=== PATIENT | male | born 1965 | race Caucasian/White ===

== ENCOUNTER 2016-10-29 08:17 | Inpatient (IN) | payer BC, OTHER ==
[~2016-10-29] VITALS: Ht 180.3 cm; Wt 77.3 kg
[~2016-10-29 08:17] MED LIST: ALBUTEROL0.09 MG/A4 IH; CLEOCIN HCL PO; COL100 PO; FENOFIBRATE130 MG PO; FENOFIBRATE145 M1 PO; FERROUS SULFAT325 M2 PO; FOL1 PO; GLU5 PO; GOOD NEIGHBOR100 M2 PO; LEV500 PO; METFORMIN500 M1 PO; PER5 PO; PRA40 PO; PRI20 PO; PRILOSEC40 MG PO; PROVENTIL0.09 MG/A1 INH; VITAMIN C500 M2 PO; VITAMIN D1 TA1 PO; ZES5 PO; ZESTRIL5 MG PO
[2016-10-29 09:17] LABS: CALCIUM 9.4 mg/dL (8.5-10.1); CARBON DIOXIDE 24.1 mmol/L (21-32); CHLORIDE SERUM 100 mmol/L (98-107); GFR1 > 60 mL/min; GLUCOSE SERUM 136 mg/dL (74-106); POTASSIUM SERUM 4.1 mmol/L (3.5-5.1); SODIUM SERUM 137 mmol/L (136-145)
[2016-10-29 09:22] LABS: ALBUMIN 4.4 g/dL (3.4-5.0); ALKALINE PHOSPHATASE 51 U/L (46-116); ALT/SGPT 30 U/L (16-63); AST/SGOT 14 U/L (15-37); BILIRUBIN TOTAL 0.61 mg/dL (0.20-1.00); TOTAL PROTEIN, SERUM 8.2 g/dL (6.4-8.2)
[2016-10-29 09:24] LABS: BASOPHIL % 0.4 % (0-2); PLATELET COUNT 358 x10^3mcL (130-400); RED CELL DISTRIBUTION WIDTH 12.8 % (11.5-14.5)
[2016-10-29 09:29] LABS: CHOLESTEROL 241 mg/dL (<200); HDL CHOLESTEROL 101 mg/dL (40-60)
[2016-10-29 12:49] LABS: CHOLESTEROL/HDL RATIO 2.3
[2016-10-29 12:50] LABS: FREE T4 0.87 ng/dL (0.76-1.46); FREE THYROXINE INDEX 2.1 ug/dL (1.4-4.5)
[2016-10-29 12:59] LABS: microscopic required? NO
[2016-10-29 13:09] LABS: UA SPECIFIC GRAVITY <=1.005 (1.005-1.035); urine erythrocyte NEGATIVE (NEGATIVE)
[2016-10-29 13:10] LABS: T3 TOTAL 0.68 ng/mL
[2016-10-29 13:21] LABS: AMPHETAMINE QUAL UR NONE DETECTED (NEG <=1000)
[2016-10-29 13:41] VITALS: BP 138/86
[2016-10-29 15:09] VITALS: BP 138/86
[2016-10-29 21:27] VITALS: BP 119/65
[2016-10-30 05:48] VITALS: BP 133/76
[2016-10-30 06:05] LABS: BASOPHIL % 0.1 % (0-2); PLATELET COUNT 340 x10^3mcL (130-400); RED CELL DISTRIBUTION WIDTH 12.6 % (11.5-14.5)
[2016-10-30 06:21] LABS: CALCIUM 8.5 mg/dL (8.5-10.1); CARBON DIOXIDE 25.6 mmol/L (21-32); CHLORIDE SERUM 105 mmol/L (98-107); CREATININE SERUM 0.8 mg/dL (0.7-1.3); GFR1 > 60 mL/min; GLUCOSE SERUM 113 mg/dL (74-106); PHOSPHOROUS 3.3 mg/dL (2.5-4.9); SODIUM SERUM 139 mmol/L (136-145)
[2016-10-30 09:47] VITALS: BP 128/83
[2016-10-30 14:01] VITALS: BP 136/87
[2016-10-30 18:02] VITALS: BP 136/72
[2016-10-30 22:06] VITALS: BP 146/74
[2016-10-31 06:33] LABS: BASOPHIL % 0.6 % (0-2); PLATELET COUNT 340 x10^3mcL (130-400); RED CELL DISTRIBUTION WIDTH 11.9 % (11.5-14.5)
[2016-10-31 06:40] LABS: CALCIUM 8.7 mg/dL (8.5-10.1); CARBON DIOXIDE 29.9 mmol/L (21-32); CHLORIDE SERUM 105 mmol/L (98-107); CREATININE SERUM 0.8 mg/dL (0.7-1.3); GFR1 > 60 mL/min; GLUCOSE SERUM 127 mg/dL (74-106); MAGNESIUM 2.1 mg/dL (1.8-2.4); PHOSPHOROUS 5.4 mg/dL (2.5-4.9); POTASSIUM SERUM 4.2 mmol/L (3.5-5.1); SODIUM SERUM 141 mmol/L (136-145)
[2016-10-31 06:55] VITALS: BP 120/65
[2016-10-31 09:54] VITALS: BP 102/63
[2016-10-31 12:27] VITALS: BP 123/69
[2016-10-31 21:36] VITALS: BP 137/67
[2016-11-01 06:19] LABS: BASOPHIL % 0.1 % (0-2); PLATELET COUNT 333 x10^3mcL (130-400); RED CELL DISTRIBUTION WIDTH 12.8 % (11.5-14.5)
[2016-11-01 06:37] VITALS: BP 140/74
[2016-11-01 06:39] LABS: CALCIUM 8.4 mg/dL (8.5-10.1); CARBON DIOXIDE 28.3 mmol/L (21-32); CHLORIDE SERUM 104 mmol/L (98-107); CREATININE SERUM 0.8 mg/dL (0.7-1.3); GFR1 > 60 mL/min; GLUCOSE SERUM 122 mg/dL (74-106); MAGNESIUM 2.1 mg/dL (1.8-2.4); PHOSPHOROUS 5.3 mg/dL (2.5-4.9); POTASSIUM SERUM 4.1 mmol/L (3.5-5.1); SODIUM SERUM 139 mmol/L (136-145)
[2016-11-01 09:21] VITALS: BP 121/73
[2016-11-01] MEDS ORDERED: SYMBICORT1 AE2 INH (09:34)
[2016-11-01] MEDS ORDERED: SINGULAIR10 MG PO (09:34)
[2016-11-01] MEDS ORDERED: LISINOPRIL10 MG PO (09:38)
[2016-11-01 11:53] VITALS: BP 121/73
== END 2016-11-01 12:27 | disposition home or self-care (01) | DRG 202 ==
LOC: ED 08:17 → DU 12:02
PROVIDERS: Emergency Medicine; Family Medicine; ADMIT Family Medicine
DX: J45.901 Unspecified asthma with (acute) exacerbation (principal); N17.0 Acute kidney failure with tubular necrosis; E78.5 Hyperlipidemia, unspecified; I10 Essential (primary) hypertension; E11.9 Type 2 diabetes mellitus without complications; Z53.29 Procedure and treatment not carried out because of patient's decision for other reasons; Z88.0 Allergy status to penicillin; Z87.891 Personal history of nicotine dependence; Z79.899 Other long term (current) drug therapy; Z79.84 Long term (current) use of oral hypoglycemic drugs
CPT/HCPCS: 80307; 83880; 84439; 90658; G0480; J1956; J2920; J2930; J7030; J7040; J7613; J7620; J7626; Q0092; Q9967

== ENCOUNTER 2018-08-23 06:33 | Inpatient (IN) | payer OTHER ==
[~2018-08-23] VITALS: Ht 177.8 cm; Wt 81.2 kg
[~2018-08-23 06:33] MED LIST changes: +LISINOPRIL10 MG PO; +SINGULAIR10 MG PO; +SYMBICORT1 AE2 INH
[2018-08-23 06:38] VITALS: Ht 177.8 cm; Wt 81.2 kg
[2018-08-23 07:30] LABS: CALCIUM 8.6 mg/dL (8.5-10.1); CARBON DIOXIDE 30.5 mmol/L (21-32); CHLORIDE SERUM 104 mmol/L (98-107); CREATININE SERUM 0.9 mg/dL (0.7-1.3); GFR1 > 60 mL/min; GLUCOSE SERUM 131 mg/dL (74-106); POTASSIUM SERUM 5.4 mmol/L (3.5-5.1); SODIUM SERUM 140 mmol/L (136-145)
[2018-08-23 07:35] LABS: ALKALINE PHOSPHATASE 22 U/L (46-116); ALT/SGPT 18 U/L (16-63); AST/SGOT 13 U/L (15-37); BILIRUBIN TOTAL 0.29 mg/dL (0.20-1.00); LIPASE 113 IU/L (73-393); TOTAL PROTEIN, SERUM 7.2 g/dL (6.4-8.2)
[2018-08-23 07:49] LABS: BASOPHIL % 0.5 % (0-2); PLATELET COUNT 354 x10^3mcL (130-400); RED CELL DISTRIBUTION WIDTH 12.5 % (11.5-14.5)
[2018-08-23 08:32] LABS: AMPHETAMINE QUAL UR NONE DETECTED (See below)
[2018-08-23] MEDS ORDERED: TRAMADOL HCL50 MG PO (08:53)
[2018-08-23] MEDS ORDERED: NAPROSYN500 MG PO (08:54)
[2018-08-23 09:19] VITALS: BP 121/80
[2018-08-23 11:55] VITALS: BP 121/80
[2018-08-23 12:16] VITALS: BP 126/74
[2018-08-23 16:21] VITALS: BP 111/75; BP 161/64
[2018-08-23 20:35] VITALS: BP 110/69
[2018-08-24 05:49] VITALS: BP 93/67
[2018-08-24 08:00] VITALS: BP 117/74
[2018-08-24 12:30] VITALS: BP 143/85
[2018-08-24 12:31] VITALS: BP 104/71
[2018-08-24 14:49] VITALS: BP 104/71
== END 2018-08-24 15:30 | disposition home or self-care (01) | DRG 394 ==
LOC: ED 06:33 → DU 08:06
PROVIDERS: Emergency Medicine; ADMIT Internal Medicine
PROC: 0DJD8ZZ Inspection of Lower Intestinal Tract, Via Natural or Artificial Opening Endoscopic (ICD-10-PCS; principal; 2018-08-23)
DX: K60.1 Chronic anal fissure (principal); K62.5 Hemorrhage of anus and rectum; D50.0 Iron deficiency anemia secondary to blood loss (chronic); K57.30 Diverticulosis of large intestine without perforation or abscess without bleeding; E11.9 Type 2 diabetes mellitus without complications; J45.909 Unspecified asthma, uncomplicated; I10 Essential (primary) hypertension; F10.10 Alcohol abuse, uncomplicated; Z68.25 Body mass index [BMI] 25.0-25.9, adult; Z87.01 Personal history of pneumonia (recurrent); Z79.4 Long term (current) use of insulin; Z79.1 Long term (current) use of non-steroidal anti-inflammatories (NSAID)
CPT/HCPCS: 45378; 82962; C9113; G0480; J1200; J1610; J2250; J2310; J2405; J3010; J3490; J3535; J7030; J7620; J7626

== ENCOUNTER 2019-03-01 12:16 | Inpatient (IN) | payer OTHER ==
[~2019-03-01] VITALS: Ht 180.3 cm; Wt 77.1 kg
[~2019-03-01 12:16] MED LIST changes: +NAPROSYN500 MG PO; +TRAMADOL HCL50 MG PO
[2019-03-01 12:43] VITALS: Ht 180.3 cm; Wt 77.1 kg
--- NOTE | 2019-03-01 12:47 | NUR ---
EKG IN PROGRESS.
--- NOTE | 2019-03-01 14:12 | NUR ---
PT PLACED IN BED 12 FOR EVAL.
[2019-03-01 14:27] LABS: BASOPHIL % 0.8 % (0-2); RED CELL DISTRIBUTION WIDTH 14.1 % (11.5-14.5)
[2019-03-01 14:28] LABS: PLATELET COUNT 454 x10^3mcL (130-400)
--- NOTE | 2019-03-01 14:35 | NUR ---
PT COMES INTO ER WITH C/O MID ANTERIOR CHEST WALL PAIN AND SOB SINCE YESTERDAY AM, HAS TAKEN OWN VENTOLION WITHOUT ANY RELIEF. PT TACHYPNIC AT 26/MIN, LS-WHEEZES BILATERAL. EKG DONE IN TRIAGE, RT CALLED FOR BREATHING TX, DR GAYTAN AT BEDSIDE FOR EXAM. SKIN W/D/I. PT PLACED ON MONITOR, ON RA@99%, WILL CONT TO MONITOR.
[2019-03-01 14:40] LABS: CALCIUM 10.6 mg/dL (8.5-10.1); CARBON DIOXIDE 28.8 mmol/L (21-32); CHLORIDE SERUM 99 mmol/L (98-107); CREATININE SERUM 0.9 mg/dL (0.7-1.3); GFR1 > 60 mL/min; GLUCOSE SERUM 94 mg/dL (74-106); SODIUM SERUM 139 mmol/L (136-145)
[2019-03-01 14:45] LABS: ALBUMIN 4.9 g/dL (3.4-5.0); ALKALINE PHOSPHATASE 34 U/L (46-116); ALT/SGPT 34 U/L (16-63); AST/SGOT 21 U/L (15-37); BILIRUBIN TOTAL 0.4 mg/dL (0.20-1.00); TOTAL PROTEIN, SERUM 8.8 g/dL (6.4-8.2)
--- NOTE | 2019-03-01 15:06 | NUR ---
PT REPORTS FEELING BETTER AFTER BREATHING TX, RESP EVEN AND UNLABORED, ON RA@ 99%
--- NOTE | 2019-03-01 16:32 | NUR ---
NO ACUTE CHANGES IN CONDTION, AWAIITNG FOR FURTHER DISPO.
[2019-03-01] MEDS ORDERED: BREO ELLIPTA1 POW (18:04)
[2019-03-01 18:18] VITALS: BP 178/86
--- NOTE | 2019-03-01 18:20 | NUR ---
REPORT GIVEN TO DARIUSZ RN, UPDATED ON STATUS, LABS AND VITALS. PT STABLE FOR TRANSFER.
--- NOTE | 2019-03-01 18:23 | NUR ---
RECEIVED PT FROM ED VIA MARCIE. ORIENTED PT TO ROOM AND SURROUNDINGS./ IV NOTED TO RAC PATENT AND INTACT. TELE 9 PLACED ON PT READING SR. INSTRUCTED PT ON THE USE OF CALL LIGHT FOR ASSISTANCE. ENDORSED PT TO PRIMARY NURSE RAHAT
[2019-03-01 18:29] VITALS: BP 166/96
--- NOTE | 2019-03-01 19:19 | NUR ---
PT RECEIVED A/O X4, ABLE TO MAKE NEEDS KNOWN. TELE #9, DENIES ANY CP/PRESSURE. PULSES PALPABLE, NO EDEMA PRESENT. PT ADMITTED FOR ASTHMA EXACERBATION. WHEEZES AUSCULTATED GORGE, BREATHING IS EVEN AND UNLABORED ON RA, ADMITS TO SOB UPON EXERTION, NO RESP DISTRESS NOTED. ABD SOFT AND NONDISTENDED, DENIES N/V. VOIDS FREELY, BRP. AMBULATORY WITH STEADY GAIT. SKIN IS WARM AND DRY, INTACT. PT C/O BACK PAIN, PER AM NURSE, WILL MEDICATE WITH PRN PAIN MED. IV TO RAC, PATENT AND INTACT, SITE WNL. NO ACUTE DISTRESS NOTED. BED IN LOWEST SETTING, SIDE RAILS UP X2, CALL LIGHT WITHIN REACH. WILL CONT TO MONITOR.
--- NOTE | 2019-03-01 19:43 | NUR ---
PT RESTING IN BED, COMPLAINING OF 7/10 BACK PAIN AND PAIN FROM DEEP BREATHING, NORCO PO GIVEN, CALL LIGHT WITHIN REACH.
--- NOTE | 2019-03-01 19:44 | NUR ---
ENDORSED CARE TO GRETCHEN MARIN.
[2019-03-01 21:21] VITALS: BP 137/83
--- NOTE | 2019-03-02 00:16 | NUR ---
PT REQUESTING BREATHING TX. RT MADE AWARE. RT AT BEDSIDE ADMINISTERED BREATHING TX. NO RESP DISTRESS NOTED. WILL CONT TO MONITOR.
--- NOTE | 2019-03-02 01:34 | NUR ---
PT C/O DIFFICULTY SLEEPING. PRN AMBIEN GIVEN ORDERED. NO ACUTE DISTRESS NOTED. CALL LIGHT WITHIN REACH. WILL CONT TO MONITOR.
[2019-03-02 05:38] VITALS: BP 137/74
[2019-03-02 06:05] LABS: PLATELET COUNT 395 x10^3mcL (130-400); RED CELL DISTRIBUTION WIDTH 14.2 % (11.5-14.5)
--- NOTE | 2019-03-02 06:18 | NUR ---
PT SLEPT AT INTERVALS THROUGHOUT THE EVENING. BREATHING IS EVEN AND UNLABORED, NO RESP DISTRESS NOTED. PT DENIES HAVING ANY PAIN AT THIS TIME. SL TO RAC, PATENT AND INTACT, WNL. NO ACUTE CHANGES ENCOUNTERED DURING SHIFT. ALL NEEDS MET AND ANTICIPATED. PT COMPLIANT WITH NURSING CARE. CALL LIGHT WITHIN REACH. WILL ENODRSE CARE TO AM NURSE.
[2019-03-02 06:25] LABS: CALCIUM 9.3 mg/dL (8.5-10.1); CARBON DIOXIDE 29.6 mmol/L (21-32); CHLORIDE SERUM 103 mmol/L (98-107); CREATININE SERUM 0.7 mg/dL (0.7-1.3); GFR1 > 60 mL/min; GLUCOSE SERUM 151 mg/dL (74-106); POTASSIUM SERUM 3.8 mmol/L (3.5-5.1); SODIUM SERUM 140 mmol/L (136-145)
--- NOTE | 2019-03-02 07:35 | NUR ---
PT C/O 02/17 BACK PAIN, PRN NORCO GIVEN ORDERED. PT REQUESTING BREATHING TX, RT CALLED AND MADE AWARE. NO ACUTE DISTRESS NOTED. CONTINUITY OF CARE ENDORSED TO AM NURSE. ALL QUESTIONS AND CONCERNS ADDRESSED.
--- NOTE | 2019-03-02 07:45 | NUR ---
A+OX4, NO RESPRIATORY DISTRESS NOTED, COMPLAINING OF WHEEZING AND PAIN FROM DEEP BREATHING RT NOTIFID AND GIVING BREATHING TREATMENT AT BEDSIDE, PT ALSO GIVEN NORCO PO BY CLARENCE RN, TELE 9, PULSES MODERATE AND EQUAL GORGE, NO EDEMA NOTED, EXPIRATORY WHEEZES, TOLERATING RA, BOWEL SOUNDS ACTIVE, VOIDING FREELY, GENERALIZED WEAKNESS, AMBULATORY, SKIN INTACT, IV IN RAC SALINE LOCKED, SITE WNL.
[2019-03-02 09:05] VITALS: BP 146/79
--- NOTE | 2019-03-02 09:50 | NUR ---
PT RESTING IN BED, NO RESPIRATORY DISTRESS NOTED, CALL LIGHT WITHIN REACH.
--- NOTE | 2019-03-02 10:50 | NUR ---
PT DAWSON CALLED AND UPDATED ON PT STATUS. PT RESTING IN BED, NO RESPIRATORY DISTRESS NOTED, CALL LIGHT WITHIN REACH.
--- NOTE | 2019-03-02 11:37 | NUR ---
PT RESTING IN BED, NO RESPIRATORY DISTRESS NOTED, STATES PAIN IS TOLERABLE AT THIS TIME, CALL LIGHT WITHIN REACH.
[2019-03-02 11:59] LABS: SEGMENTED NEUTROPHILS 90 % (37-75)
[2019-03-02 12:00] LABS: BAND NEUTROPHIL 3 % (0-10); PLATELET MORPHOLOGY PLATELETS NORMAL; rbc morphology (normal/abnorm) ABNORMAL (NORMAL)
--- NOTE | 2019-03-02 13:22 | NUR ---
PT RESTING IN BED, COMPLAINING OF 7/10 BACK PAIN AND PAIN WITH DEEP BREATHING, NORCO PO GIVEN, NO RESPRIATORY DISTRESS NOTED, CALL LIGHT WITHIN REACH.
[2019-03-02 13:24] VITALS: BP 132/75
--- NOTE | 2019-03-02 15:07 | NUR ---
PT RESTING IN BED, NO RESPIRATORY DISTRESS NOTED, STATES BACK PAIN IS TOLERABLE AT THIS TIME, CALL LIGHT WITHIN REACH.
[2019-03-02 17:22] VITALS: BP 124/74
--- NOTE | 2019-03-02 18:51 | NUR ---
PT COMPLAINING OF 7/10 BACK PAIN AND PAIN UPON DEEP BREATHING, NORCO PO GIVEN, CALL LIGHT WITHIN REACH.
--- NOTE | 2019-03-02 19:20 | NUR ---
RECEIVED PT LAYING IN BED, NO ACUTE DISTRESS OBSERVED, DENIES PAIN OR DISCOMFORT AT THIS TIME. BREATHING ON RA, EVEN AND UNLABORED, DENIES SOB OR DYSPNEA, LUNGS CTA, O2 SAT 99% AA/OX4, ABLE TO MAKE NEEDS KNOWN, SPEECH CLEAR AND APPROPRIATE. NSR TO TELE #9, NO CP. PULSES PRESENT AND EQUAL THROUGHOUT, NO EDEMA. ABD ROUND AND SOFT, NO N/V/D. FREELY VOIDS URINE WITH BRP, AMBULATORY AND ABLE TO REPOSITION SELF IN BED.IV TO RAC IN PLACE, DRY, PATENT, INTACT, S/L AT THIS TIME, NO PAIN, REDNESS OR SWELLING WHEN FLUSHED WITH NS. COMFORT AND SAFETY MEASURES IN PLACE. ALL NEEDS ASSESSED AND ATTENDED TO. CALL LIGHT WITHIN REACH. WILL CONTINUE TO MONITOR
--- NOTE | 2019-03-02 19:39 | NUR ---
ENDORSED CARE TO TONE MARIN.
[2019-03-02 20:39] VITALS: BP 119/67
--- NOTE | 2019-03-03 00:05 | NUR ---
PT LAYING IN BED, BREATHING EVEN AND UNLABORED, NO ACUTE DISTRESS OBSERVED. PT DENIES ANY DISCOMFORT AT THIS TIME, AROUSABLE TO VERBAL STIMULI. CALL LIGHT WITHIN REACH. WILL CONTINUE TO MONITOR
[2019-03-03 05:41] VITALS: BP 97/66
--- NOTE | 2019-03-03 06:09 | NUR ---
NO SIGNIFICANT CHANGES TO REPORT, PT COMPLIED WITH NURSING CARE THROUGHOUT THE SHIFT WITH NO ACUTE EVENTS OVERNIGHT. NO ACUTE DISTRESS OBSERVED AT THIS TIME, PT LAYING IN BED, BREATHING EVEN AND UNLABORED, DENIES DISCOMFORT. COMFORT AND SAFETY MEASURES MAINTAINED. ALL NEEDS ASSESSED ATTENDED TO. CALL LIGHT WITHIN REACH. WILL CONTINUE TO MONITOR AND ENDORSE CARE TO DAY SHIFT NURSE
[2019-03-03 06:47] LABS: CALCIUM 9.5 mg/dL (8.5-10.1); CARBON DIOXIDE 26.8 mmol/L (21-32); CHLORIDE SERUM 105 mmol/L (98-107); CREATININE SERUM 0.9 mg/dL (0.7-1.3); GFR1 > 60 mL/min; GLUCOSE SERUM 131 mg/dL (74-106); POTASSIUM SERUM 4.3 mmol/L (3.5-5.1); SODIUM SERUM 142 mmol/L (136-145)
[2019-03-03 06:57] LABS: BASOPHIL % 0 % (0-2); PLATELET COUNT 409 x10^3mcL (130-400); RED CELL DISTRIBUTION WIDTH 14.6 % (11.5-14.5)
--- NOTE | 2019-03-03 07:05 | NUR ---
RECIEVED PT RESTING IN BED SITH NO C/O DISTRESS OR SOB. A/O X4 WITH NO KELLER OR DIZZINESS. TELE#9 CONNECTED TO PT, DENIES ANY CP OR PRESSURE. ON RA SATING AT 98%. SALINE LOCK TO RAC INTACT AND PATENT WITH NO REDNESS OR INFLAMMATION NOTED. SAFETY PRECAUTIONS IN PLACE, CALL LIGHT WITHIN REACH, WILL MONITOR.
--- NOTE | 2019-03-03 08:44 | NUR ---
PT C/O 03/20 BACK PAIN, MEDICATED WITH NORCO PER EMAR, WILL REASSESS.
[2019-03-03 09:41] VITALS: BP 110/64
--- NOTE | 2019-03-03 11:58 | NUR ---
PT STABLE AT THIS TIME. DENIES ANY SOB. SAFETY PRECAUTIONS IN PLACE, CALL LIGHT WITHIN REACH, WILL MONITOR.
[2019-03-03 13:10] VITALS: BP 121/74
--- NOTE | 2019-03-03 13:53 | NUR ---
PT C/O 02/17 BACK PAIN, MEDICATED WITH NORCO PER EMAR. WILL REASSESS.
[2019-03-03 18:19] VITALS: BP 119/69
--- NOTE | 2019-03-03 18:30 | NUR ---
PT STABLE RESTING IN BED WITH NO C/O PAIN, DISTRESS, OR SOB. ALL CARES TOLERATED WELL. VS WNL. IV INTACT AND PATENT WITH NO REDNESS OR INFLAMMATION NOTED. LUNGS CTA. SAFETY PRECAUTIONS IN PLACE, CALL LIGHT WITHIN REACH, WILL ENDORSE CARE TO NIGHT NURSE.
--- NOTE | 2019-03-03 19:37 | NUR ---
RECEIVED PATIENT IN BED AWAKE, ALERT AND ORIENTED WITH NO SIGN OF RESPIRATORY DISTRESS. BREATHING EASYA ND NONLABOR SATTING AT 98% RA.. TELE#9 NSR ON MONITOR, DENIES CHESTPAIN. ABDOMEN SOFT AND NONTENDER WITH ACTIVE BS. HAD BM THIS AM. HEPLOCK TO LAC , FLUSHED WITH NS. WILL CONTINUE TO MONITOR. CALL LIGHT WITHIN REACH.
[2019-03-03 21:02] VITALS: BP 111/72
--- NOTE | 2019-03-04 00:10 | NUR ---
APPEARS SLEEPING WITH NO SIGN OF RESPIRATORY DISTRESS, BREATHING EASY AND NONLABOR.
[2019-03-04 05:15] VITALS: BP 117/73
--- NOTE | 2019-03-04 05:25 | NUR ---
SLEPT FAIRLY NO SIGN OF RESPIRATORY DISTRESS NOTED. ALL NEEDS ATTENDED.
--- NOTE | 2019-03-04 07:05 | NUR ---
RECIEVED PT RESTING IN BED WITH NO DISTRESS OR PAIN. NO SOB AT THIS TIME. RT AT BEDSIDE. PT A/O X4 WITH NO KELLER OR DIZZINESS. TELE# 9 CONNECTED TO PT. LUNGS CTAB 96% ON RA. SKIN CDI. RAC IV INTACT AND PATENT WITH NO REDNESS OR INFLAMMATION. SAFETY PRECAUTIONS IN PLACE, CALL LIGHT WITHIN REACH, WILL MONITOR.
--- NOTE | 2019-03-04 08:58 | NUR ---
DR HERNANDEZ AT BEDSIDE WITH PT DISCUSSING SYMPTOMS AND POC. PT VERBALIZES UNDERSTANDING NEW ORDERS WILL BE CARRIED OUT.
[2019-03-04 09:53] VITALS: BP 116/72
--- NOTE | 2019-03-04 10:05 | NUR ---
PT C/O 03/20 BACK PAIN, MEDICATED WITH NORCO PER EMAR, WILL REASSESS.
--- NOTE | 2019-03-04 10:25 | NUR ---
IV IN RAC REMOVED WITH CATHETER INTACT. NEW IV STARTED IN LEFT HAND, IV INTACT AND PATENT WITH NO REDNESS OR INFLAMMATION NOTED.
--- NOTE | 2019-03-04 12:37 | NUR ---
PT STABLE AT THIS TIME. NO C/O PAIN, DISTRESS, OR SOB. SAFETY PRECAUTIONS IN PLACE, CALL LIGHT WITHIN REACH, WILL MONITOR.
[2019-03-04 12:53] VITALS: BP 123/78
--- NOTE | 2019-03-04 16:00 | NUR ---
PT STABLE AT THIS TIME. NO C/O DISTRESS OR SOB. SAFETY PRECAUTIONS IN PLACE, CALL LIGHT WITHIN REACH, WILL MONITOR.
[2019-03-04 18:26] VITALS: BP 136/79
--- NOTE | 2019-03-04 18:32 | NUR ---
PT RESTING IN BED WITH NO C/O DISTRESS OR SOB. MEDICATED WITH MORPHINE FOR 8/10 BACK PAIN. A/O X4 WITH NO KELLER OR DIZZINESS NOTED. TELE# 9 CONNECTED TO PT. PT AMBULATORY, WALKS AROUND UNIT AND TOLERATED WELL. SKIN CDI. LEFT HAND IV INTACT AND PATENT WITH NO REDNESS OR INFLAMMATION NOTED. ALL CARES TOLERATED WELL. SAFETY PRECAUTIONS IN PLACE, CALL LIGHT WITHIN REACH, WILL ENDORSE CARE TO NIGHT NURSE.
--- NOTE | 2019-03-04 19:05 | NUR ---
RECEIVED PT LAYING IN BED, NO ACUTE DISTRESS OBSERVED, C/O 2/10 PAIN TO LOWER BACK, DESCRIBES IT AT CHRONIC, WILL MEDICATE PRN. BREATHING ON RA, EVEN AND UNLABORED, DENIES SOB OR DYSPNEA, LUNGS CTA, O2 SAT 97% AA/OX4, ABLE TO MAKE NEEDS KNOWN, SPEECH CLEAR AND APPROPRIATE. NSR TO TELE #9, NO CP. PULSES PRESENT AND EQUAL THROUGHOUT, NO EDEMA. ABD ROUND AND SOFT, NO N/V/D. FREELY VOIDS URINE WITH BRP, AMBULATORY AND ABLE TO REPOSITION SELF IN BED. IV TO LH IN PLACE, DRY, PATENT, INTACT, S/L AT THIS TIME, NO PAIN, REDNESS OR SWELLING WHEN FLUSHED WITH NS. COMFORT AND SAFETY MEASURES IN PLACE. ALL NEEDS ASSESSED AND ATTENDED TO. CALL LIGHT WITHIN REACH. WILL CONTINUE TO MONITOR
[2019-03-04 21:48] VITALS: BP 128/92
--- NOTE | 2019-03-04 23:50 | NUR ---
PT LAYING IN BED, BREATHING EVEN AND UNLABORED, NO ACUTE DISTRESS OBSERVED. CALL LIGHT WITHIN REACH. WILL CONTINUE TO MONITOR
[2019-03-05 05:34] VITALS: BP 107/68
--- NOTE | 2019-03-05 07:39 | NUR ---
RECEIVED PATIENT FROM [facility]. PATIENT IN BED RESTING, NO COMPLAINTS AT THIS TIME. REVIEWED TODAYS PLAN WITH PATIENT INCLUDING MEDICATIONS AND PAIN CONTROL. PATIENT AGREES. WILL CONTINUE BREATHING TREATMENTS UNTIL DR ZIMMER COMES TO SEE PATIENT. CALL LIGHT IN REACH AT THIS TIME.
[2019-03-05 08:15] VITALS: BP 121/68
--- NOTE | 2019-03-05 09:21 | NUR ---
DR ZIMMER IN TO SPEAK WITH PATIENT, STATES PATIENT WILL BE ABLE TO GO HOME TODAY. WILL AWAIT ORDERS FROM DR ZIMMER, PATIENT AGREES AND VERBALIZES UNDERSTANDING. CALL LIGHT IN REACH.
--- NOTE | 2019-03-05 09:47 | NUR ---
DR ZIMMER IN TO SPEAK WITH PATIENT, STATES PATIENT SHOULD BE ABLE TO GO HOME TODAY AFTER BREATHING TREATMENTS. PATIENT AGREES. PATIENT STATES HE IS STILL FEELING HIS BACK PAIN 1 HR POST PRN MORPHINE 1 MG. INFORMED PATIENT HE HAS TO WAIT FOR PRN NORCO PO. WILL CONTINUE TO MONITOR AND AWAIT DISCHARGE INSTRUCTIONS. CALL LIGHT IN REACH, PATIENT OBSERVED AMBULATING AROUND UNIT.
[2019-03-05 11:58] VITALS: BP 119/79
--- NOTE | 2019-03-05 12:22 | NUR ---
PATIENT CONTINUES TO COMPLAIN OF BACK PAIN, PRN NORCO PO GIVEN PRIOR AND STATES NOT EFFECTIVE. ANOTHER PRN MORPHIN IVP ADMINISTERED. WILL CONTINUE TO MONITOR AT THIS TIME. CALL LIGHT IN REACH.
[2019-03-05 13:37] VITALS: BP 119/79
--- NOTE | 2019-03-05 14:30 | NUR ---
DISCHARGE INSTRUCTIONS GIVEN AND EXPLAINED TO PATIENT. ALL QUESTIONS ANSWERED. PACKET AND NEW PRESCRIPTIONS GIVEN TO PATIENT. IV ACCESS REMOVED AND INTACT, TELEMETRY UNIT RETURNED TO [facility]. PAPERWORK SIGNED, PATIENT WITH BELONGINGS ESCORTED DOWNSTAIRS VIA AMBULATION, ACCOMPANIED BY SAÚL LANDRY.
== END 2019-03-05 14:25 | disposition home or self-care (01) | DRG 189 ==
LOC: ED 12:16 → DU 16:02
PROVIDERS: Emergency Medicine; ADMIT Internal Medicine
DX: J96.91 Respiratory failure, unspecified with hypoxia (principal); J45.901 Unspecified asthma with (acute) exacerbation; J20.9 Acute bronchitis, unspecified; I10 Essential (primary) hypertension; Z68.24 Body mass index [BMI] 24.0-24.9, adult; Z79.51 Long term (current) use of inhaled steroids; Z88.0 Allergy status to penicillin; Z87.01 Personal history of pneumonia (recurrent); Z80.9 Family history of malignant neoplasm, unspecified
CPT/HCPCS: 36600; 83880; 94150; G0378; J0696; J1956; J2270; J2920; J2930; J7030; J7040; J7060; J7613; J7620; J7626; J7644

== ENCOUNTER 2019-06-14 00:45 | Emergency (ER) | payer OTHER ==
[~2019-06-14] VITALS: Ht 180.3 cm; Wt 78.9 kg
[~2019-06-14 00:45] MED LIST changes: +BREO ELLIPTA1 POW
[2019-06-14 00:50] VITALS: Ht 180.3 cm; Wt 78.9 kg
[2019-06-14 02:38] LABS: BASOPHIL % 1.7 % (0-2); PLATELET COUNT 380 x10^3mcL (130-400); RED CELL DISTRIBUTION WIDTH 12.3 % (11.5-14.5)
[2019-06-14 03:24] LABS: CALCIUM 8.5 mg/dL (8.5-10.1); CARBON DIOXIDE 26.6 mmol/L (21-32); CHLORIDE SERUM 103 mmol/L (98-107); CREATININE SERUM 0.7 mg/dL (0.7-1.3); GFR1 > 60 mL/min; GLUCOSE SERUM 108 mg/dL (74-106); POTASSIUM SERUM 3.9 mmol/L (3.5-5.1); SODIUM SERUM 139 mmol/L (136-145)
[2019-06-14 03:37] LABS: ALBUMIN 4.1 g/dL (3.4-5.0); ALKALINE PHOSPHATASE 32 U/L (46-116); ALT/SGPT 27 U/L (16-63); AMYLASE 54 U/L (25-115); AST/SGOT 16 U/L (15-37); BILIRUBIN TOTAL 0.5 mg/dL (0.20-1.00); LIPASE 102 IU/L (73-393); TOTAL PROTEIN, SERUM 7.8 g/dL (6.4-8.2)
[2019-06-14 04:55] VITALS: BP 110/78
== END 2019-06-14 04:55 | disposition home or self-care (01) ==
LOC: ED 00:45
PROVIDERS: Emergency Medicine
DX: K57.32 Diverticulitis of large intestine without perforation or abscess without bleeding (principal); J45.909 Unspecified asthma, uncomplicated; I10 Essential (primary) hypertension; Z88.0 Allergy status to penicillin; Z98.890 Other specified postprocedural states
CPT/HCPCS: J2270; J2405; Q0092

== ENCOUNTER 2019-08-09 05:47 | Inpatient (IN) | payer OTHER ==
[~2019-08-09] VITALS: Ht 175.3 cm; Wt 79.8 kg
[2019-08-09 08:08] LABS: microscopic required? NO
[2019-08-09 08:15] LABS: BASOPHIL % 0.2 % (0-2); RED CELL DISTRIBUTION WIDTH 12.5 % (11.5-14.5)
[2019-08-09 08:22] LABS: PLATELET COUNT 420 x10^3mcL (130-400)
[2019-08-09 08:25] LABS: urine erythrocyte NEGATIVE (NEGATIVE)
[2019-08-09 08:42] LABS: CALCIUM 9.3 mg/dL (8.5-10.1); CARBON DIOXIDE 25.8 mmol/L (21-32); CHLORIDE SERUM 99 mmol/L (98-107); CREATININE SERUM 0.9 mg/dL (0.7-1.3); GFR1 > 60 mL/min; GLUCOSE SERUM 104 mg/dL (74-106); POTASSIUM SERUM 4.2 mmol/L (3.5-5.1); SODIUM SERUM 136 mmol/L (136-145)
[2019-08-09 08:46] LABS: ALBUMIN 4.7 g/dL (3.4-5.0); ALKALINE PHOSPHATASE 35 U/L (46-116); ALT/SGPT 36 U/L (16-63); AST/SGOT 16 U/L (15-37); BILIRUBIN TOTAL 0.47 mg/dL (0.20-1.00)
[2019-08-09 08:48] LABS: CHOLESTEROL 218 mg/dL (<200); HDL CHOLESTEROL 74 mg/dL (40-60); TOTAL PROTEIN, SERUM 8.6 g/dL (6.4-8.2)
[2019-08-09] MEDS ORDERED: LISINOPRIL2.5 MG PO (11:16)
[2019-08-09] MEDS ORDERED: SINGULAIR4 MG/Packe PO (11:39)
[2019-08-09 12:50] VITALS: BP 127/69
[2019-08-09 13:17] VITALS: BP 121/88
[2019-08-09 13:21] VITALS: BP 127/69
[2019-08-09 16:37] VITALS: BP 128/80
[2019-08-09 21:11] VITALS: BP 129/77
[2019-08-10 05:39] VITALS: BP 132/76
[2019-08-10 07:54] VITALS: BP 149/84
[2019-08-10 13:23] VITALS: BP 127/70
[2019-08-10 17:39] VITALS: BP 127/72
[2019-08-10 20:09] VITALS: BP 125/71
[2019-08-11 05:32] VITALS: BP 100/72
[2019-08-11 06:24] LABS: PLATELET COUNT 386 x10^3mcL (130-400); RED CELL DISTRIBUTION WIDTH 13.1 % (11.5-14.5)
[2019-08-11 07:13] LABS: CALCIUM 9.1 mg/dL (8.5-10.1); CARBON DIOXIDE 28.6 mmol/L (21-32); CHLORIDE SERUM 102 mmol/L (98-107); CREATININE SERUM 0.9 mg/dL (0.7-1.3); GFR1 > 60 mL/min; GLUCOSE SERUM 119 mg/dL (74-106); MAGNESIUM 2.4 mg/dL (1.8-2.4); POTASSIUM SERUM 4.1 mmol/L (3.5-5.1); SODIUM SERUM 138 mmol/L (136-145)
[2019-08-11 07:31] LABS: BASOPHIL % 0 % (0-2)
[2019-08-11 08:02] VITALS: BP 111/66
[2019-08-11 12:31] VITALS: BP 111/65
[2019-08-11 16:11] VITALS: BP 111/66
[2019-08-11 20:06] VITALS: Ht 175.3 cm; Wt 79.8 kg
[2019-08-11 20:14] VITALS: BP 116/63
[2019-08-12 04:59] VITALS: BP 123/76
[2019-08-12 06:37] LABS: CARBON DIOXIDE 28.5 mmol/L (21-32); CHLORIDE SERUM 101 mmol/L (98-107); CREATININE SERUM 0.8 mg/dL (0.7-1.3); GFR1 > 60 mL/min; GLUCOSE SERUM 111 mg/dL (74-106); MAGNESIUM 2.5 mg/dL (1.8-2.4); POTASSIUM SERUM 3.9 mmol/L (3.5-5.1); SODIUM SERUM 138 mmol/L (136-145)
[2019-08-12 07:13] LABS: PLATELET COUNT 386 x10^3mcL (130-400); RED CELL DISTRIBUTION WIDTH 12.9 % (11.5-14.5)
[2019-08-12 07:19] LABS: BASOPHIL % 0 % (0-2)
[2019-08-12 08:27] VITALS: BP 115/78
[2019-08-12 12:44] VITALS: BP 113/74
[2019-08-12 16:31] VITALS: BP 105/57
[2019-08-12 19:40] VITALS: BP 121/76
[2019-08-13 04:59] VITALS: BP 122/76
[2019-08-13 08:50] VITALS: BP 126/71
[2019-08-13 12:46] VITALS: BP 127/83
[2019-08-13 15:17] VITALS: BP 127/83
[2019-08-13 17:17] VITALS: BP 121/88
[2019-08-13 20:52] VITALS: BP 111/86
[2019-08-14 05:11] VITALS: BP 115/72
[2019-08-14 09:00] VITALS: BP 136/83
[2019-08-14 12:26] VITALS: BP 117/84
[2019-08-14 17:26] VITALS: BP 102/80
[2019-08-14 20:36] VITALS: BP 115/73
[2019-08-15 04:52] VITALS: BP 110/72
[2019-08-15 05:50] LABS: PLATELET COUNT 390 x10^3mcL (130-400); RED CELL DISTRIBUTION WIDTH 12.7 % (11.5-14.5)
[2019-08-15 06:06] LABS: CALCIUM 9.2 mg/dL (8.5-10.1); CARBON DIOXIDE 29.5 mmol/L (21-32); CHLORIDE SERUM 99 mmol/L (98-107); CREATININE SERUM 0.9 mg/dL (0.7-1.3); GFR1 > 60 mL/min; GLUCOSE SERUM 122 mg/dL (74-106); POTASSIUM SERUM 3.9 mmol/L (3.5-5.1); SODIUM SERUM 136 mmol/L (136-145)
[2019-08-15 06:09] LABS: BASOPHIL % 0 % (0-2)
[2019-08-15 09:01] VITALS: BP 119/71
[2019-08-15 13:09] VITALS: BP 127/67
[2019-08-15 13:27] VITALS: BP 127/67
== END 2019-08-15 13:53 | disposition home or self-care (01) | DRG 189 ==
LOC: ED 05:47 → DU 10:29 → MU 08-10 15:20
PROVIDERS: Emergency Medicine; Internal Medicine; ADMIT Internal Medicine
DX: J96.01 Acute respiratory failure with hypoxia (principal); J45.901 Unspecified asthma with (acute) exacerbation; E87.2 Acidosis; J20.9 Acute bronchitis, unspecified; I10 Essential (primary) hypertension; Z79.51 Long term (current) use of inhaled steroids; Z79.52 Long term (current) use of systemic steroids; Z68.26 Body mass index [BMI] 26.0-26.9, adult
CPT/HCPCS: 87804; 94150; G0378; J0456; J1650; J2270; J2920; J2930; J3535; J7030; J7050; J7613; J7620; J7626; Q0092; Q9967